=== PATIENT | male | born 1980 | race Caucasian/White ===

== ENCOUNTER 2019-01-05 06:58 | Emergency (ER) | payer SELFPAY ==
[~2019-01-05] VITALS: Ht 162.6 cm; Wt 65.0 kg
[2019-01-05] MEDS ORDERED: NALOXONE HCL 0.4 MG/ML 1ML VIAL IV ONE (07:30)
[2019-01-05 08:02] LABS: BASOPHILS % 0.7 % (0.0-2.0); EOSINOPHILS % 2.1 % (0.0-5.0); HEMATOCRIT. 51.8 % (42.0-52.0); HEMOGLOBIN. 17.6 g/dL (14.0-18.0); LYMPHOCYTES % 21.6 % (20.0-50.0); MEAN CORPUSCULAR HEMOGLOBIN 30.8 pg (28.0-32.0); MEAN CORPUSCULAR VOLUME 90.5 fL (80.0-94.0); MONOCYTES % 11.8 % (2.0-8.0); NEUTROPHILS % 63.8 % (40.0-76.0); PLATELET 394 x1000/uL (130-400); RED BLOOD CELL COUNT 5.73 mill/uL (4.7-6.1); RED CELL DISTRIBUTION WIDTH 14.5 % (11.6-14.6)
[2019-01-05 08:08] LABS: CHLORIDE 99 mEq/L (98-107)
[2019-01-05 08:12] LABS: ETHANOL BLOOD < 10 mg/dL
[2019-01-05 09:28] VITALS: BP 108/75
== END 2019-01-05 10:01 | disposition home or self-care (01) ==
LOC: ER 06:58
DX: F11.10 Opioid abuse, uncomplicated (principal); E11.9 Type 2 diabetes mellitus without complications; F14.10 Cocaine abuse, uncomplicated
CPT/HCPCS: 36415; 80053; 80320; 85025; 96374; 99283; J2310; G0480